=== PATIENT | female | born 1980 | race Caucasian/White ===

== ENCOUNTER 2023-10-15 22:47 | Emergency (ER) | payer OTHER, SELFPAY ==
[2023-10-15 22:52] VITALS: BP 118/88; PULSE 75; RESP 20; TEMP 36.8; O2SAT 98
--- NOTE | 2023-10-16 01:16 | ED.GENADULT ---
HPI - General Adult General Chief complaint: Fall Stated complaint: fall, elbow lac Time Seen by Provider: 10/15/23 23:56 Source: patient Mode of arrival: EMS Limitations: no limitations History of Present Illness HPI narrative: This is a 43-year-old female who presents to the ED with chief complaint of left elbow injury occurring just prior to arrival. Patient reports that she was walking through the room, tripped on a fan on the ground and fell into the metal bed frame. Reports the metal bracket on the frame cut the back of her elbow. Denies head injury or LOC. denies any further sites of pain or injury. Review of Systems Review of Systems: All systems as dictated in HPI Exam Narrative: GENERAL: Well-appearing, well-nourished, and in no acute distress. HEAD: Normocephalic, atraumatic. EYES: PERRLA and EOMI. ENT: Nares clear, no rhinorrhea or epistaxis. Mucous membranes moist. Oropharynx without tonsillar hypertrophy exudate or other lesions. NECK: Supple. No adenopathy or masses. CHEST: No respiratory distress. Clear to auscultation. No wheezes rales or rhonchi HEART: Regular rate and rhythm. No murmur heard. Normal peripheral pulses. ABDOMEN: Soft, nontender, nondistended, normal active bowel sounds. MSK: Normal range of motion. No edema. Full range of motion of the bilateral elbows and shoulders. No bruising, swelling or deformities. SKIN: There is a deep 3 cm laceration to the posterior left elbow. NEURO: Alert and oriented x3. No focal deficits. PSYCH: Normal mood and affect. Course Vital Signs Vital signs: Vital Signs Temperature 98.2 F 10/15/23 22:52 Pulse Rate 75 10/15/23 22:52 Respiratory Rate 20 10/15/23 22:52 Blood Pressure 118/88 10/15/23 22:52 Pulse Oximetry 98 10/15/23 22:52 Oxygen Delivery Room Air 10/15/23 22:52 Temperature 98.2 F 10/15/23 22:52 Pulse Rate 70 10/16/23 01:47 Respiratory Rate 19 10/16/23 01:47 Blood Pressure 120/78 10/16/23 01:47 Pulse Oximetry 100 10/16/23 01:47 Oxygen Delivery Room Air 10/15/23 22:52 Procedures Laceration Laceration 1: Date: 10/16/23 Time: : Site: upper extremity (Elbow) Side (If applicable): left Size (cm): 3 Description: linear Depth: simple, single layer (Involves adipose tissue, elbow joint intact) Local Anesthetic: lidocaine 1% and with epi Amount of anesthesia used (mL): 5 Pre-repair: wound explored, irrigated extensively and deep structures intact ====== Skin Level ====== Skin layer closed with: nylon Size (cm): 4-0 Number of sutures: 5 Technique: simple, interrupted ====== Subcutaneous Layer ====== Subcutaneous layer closed with: vicryl Size: 4-0 Number of sutures: 2 Technique: simple, interrupted ====== Muscle Layer ====== ====== Tendon Layer ====== Medical Decision Making MDM Narrative Medical decision making narrative: This is a 43-year-old female who presents to the ED for chief complaint of left elbow injury occurring just prior to arrival. Vitals are normal. Exam shows a 3 cm laceration to the posterior elbow. The wound is with relatively deep but the joint is spared. The wound was well cleansed and irrigated here in the department. Closed primarily. Laceration instructions were given. pt will be discharged in stable condition. Return precautions given and supportive measures discussed. Pt is understanding and agreeable with plan for discharge and follow-up with PCP. Vital Signs Vital Signs: Vital Signs Temperature 98.2 F 10/15/23 22:52 Pulse Rate 75 10/15/23 22:52 Respiratory Rate 20 10/15/23 22:52 Blood Pressure 118/88 10/15/23 22:52 Pulse Oximetry 98 10/15/23 22:52 Oxygen Delivery Room Air 10/15/23 22:52 Temperature 98.2 F 10/15/23 22:52 Pulse Rate 70 10/16/23 01:47 Respiratory Rate 19
[2023-10-16] MEDS: TETANUS,DIPHTHERIA,AC PERTUSSIS ADULT (0.5 ML) BOOSTRIX IM (01:45)
--- NOTE | 2023-10-16 01:46 | PC.NURSE ---
Manual barcode used for medical sales representative as scanner was not working in room H2.
[2023-10-16 01:47] VITALS: BP 120/78; PULSE 70; RESP 19; O2SAT 100
== END 2023-10-16 01:53 | disposition home or self-care (01) ==
PROVIDERS: Emergency Provider Physician Assistant
DX: S51.012A Laceration without foreign body of left elbow, initial encounter (principal); Z23 Encounter for immunization; W18.09XA Striking against other object with subsequent fall, initial encounter
CPT/HCPCS: 12032; 90471; 90715; 99282